=== PATIENT | male | born 1990 | race Caucasian/White ===

== ENCOUNTER 2018-03-02 19:37 | Emergency (ER) | payer SELFPAY ==
[2018-03-02] MEDS ORDERED: KETOROLAC 30 MG/ML INJ ONE (20:48)
--- NOTE | 2018-03-02 20:53 | EDPHYS ---
Physician Documentation [facility] Name: Jose Hankins Jr Age: 28 yrs Sex: Male : 1990 Arrival Date: 03/02/2018 Time: 19:44 Bed 23 Private MD: ED Physician Satish Brambila HPI: 03/02 20:34 This 28 yrs old Male presents to ER via Ambulatory with complaints of Wrist snw Injury. 20:34 The patient or guardian reports decreased range of motion, injury, pain. The complaints snw affect the left wrist diffusely. Context: The problem was sustained outdoors, resulted from a fall, on an outstretched hand. Onset: The symptoms/episode began/occurred suddenly, just prior to arrival. Associated signs and symptoms: Pertinent positives: of the left wrist. Compartment Syndrome negative for numbness. The patient has not experienced similar symptoms in the past. It is unknown whether or not the patient has recently seen a physician. Historical: - Allergies: 19:54 No Known Allergies; lp1 - Home Meds: 19:54 None [Active]; lp1 - PMHx: 19:54 None; lp1 - PSHx: 19:54 clavicle surgery; lp1 - Immunization history:: Adult Immunizations up to date. - Social history:: Smoking status: Patient uses tobacco products, smokes one-half pack cigarettes per day. - Ebola Screening: : No symptoms or risks identified at this time. ROS: 20:34 Constitutional: Negative for fever, chills, and weight loss, Eyes: Negative for injury, snw pain, redness, and discharge, ENT: Negative for injury, pain, and discharge, Neck: Negative for injury, pain, and swelling, Cardiovascular: Negative for chest pain, palpitations, and edema, Respiratory: Negative for shortness of breath, cough, wheezing, and pleuritic chest pain, Abdomen/GI: Negative for abdominal pain, nausea, vomiting, diarrhea, and constipation, Back: Negative for injury and pain, : Negative for injury, bleeding, discharge, and swelling, Skin: Negative for injury, rash, and discoloration, Neuro: Negative for headache, weakness, numbness, tingling, and seizure. 20:34 MS/extremity: Positive for injury or acute deformity, decreased range of motion, pain, of the left wrist. Exam: 20:33 Constitutional: This is a well developed, well nourished patient who is awake, alert, snw and in no acute distress. Head/Face: Normocephalic, atraumatic. Eyes: Pupils equal round and reactive to light, extra-ocular motions intact. Lids and lashes normal. Conjunctiva and sclera are non-icteric and not injected. Cornea within normal limits. Periorbital areas with no swelling, redness, or edema. ENT: Nares patent. No nasal discharge, no septal abnormalities noted. Tympanic membranes are normal and external auditory canals are clear. Oropharynx with no redness, swelling, or masses, exudates, or evidence of obstruction, uvula midline. Mucous membranes moist. Neck: Trachea midline, no thyromegaly or masses palpated, and no cervical lymphadenopathy. Supple, full range of motion without nuchal rigidity, or vertebral point tenderness. No Meningismus. Chest/axilla: Normal chest wall appearance and motion. Nontender with no deformity. No lesions are appreciated. Cardiovascular: Regular rate and rhythm with a normal S1 and S2. No gallops, murmurs, or rubs. Normal PMI, no JVD. No pulse deficits. Respiratory: Lungs have equal breath sounds bilaterally, clear to auscultation and percussion. No rales, rhonchi or wheezes noted. No increased work of breathing, no retractions or nasal flaring. Abdomen/GI: Soft, non-tender, with normal bowel sounds. No distension or tympany. No guarding or rebound. No evidence of tenderness throughout. Back: No spinal tenderness. No costovertebral tenderness. Full range of motion. Skin: Warm, dry with normal turgor. Normal color with no rashes, no lesions, and no evidence of cellulitis. Neuro: Awake and alert, GCS 15, oriented to person, place, time, and situation. Cranial nerves II-XII grossly intact. Motor strength 5/5 in all extremities. Sensory grossly intact. Cerebellar exam normal. Normal gait. Psych: Awake, alert, with orientation to person, place and time. Behavior, mood, and affect are within normal limits. 20:33 Musculoskeletal/extremity: Extremities: grossly normal except: noted in the left wrist: decreased ROM, swelling, tenderness, Circulation is intact in all extremities. Sensation intact. Vital Signs: 19:53 BP 142 / 85; Pulse 80; Resp 16; Temp 99(TE); Pulse Ox 100% on R/A; Weight 81.65 kg; lp1 Height 5 ft. 7 in. (170.18 cm); Pain 10/10; 20:15 BP 150 / 83; Pulse 80; Resp 18; Pulse Ox 99% ; tl3 21:31 BP 145 / 82; Pulse 80; Resp 18; Pulse Ox 100% on R/A; tl3 19:53 Body Mass Index 28.19 (81.65 kg, 170.18 cm) lp1 MDM: 20:26 Patient medically screened. snw 20:55 Data reviewed: vital signs, nurses notes. Data interpreted: Pulse oximetry: on room air snw is 100 %. Interpretation: normal. Counseling: I had a detailed discussion with the patient and/or guardian regarding: the historical points, exam findings, and any diagnostic results supporting the discharge/admit diagnosis, the presence of at least one elevated blood pressure reading (>120/80) during this emergency department visit, radiology results, the need for outpatient follow up, to return to the emergency department if symptoms worsen or persist or if there are any questions or concerns that arise at home. Special discussion: I have referred the patient to see his PCP for further evaluation of high blood pressure. Based on the history and exam findings, there is no indication for further emergent testing or inpatient evaluation. I discussed with the patient/guardian the need to see the hand specialist for further evaluation of the symptoms. I discussed with the patient/guardian the need to see the orthopedic surgeon for further evaluation of the symptoms. I discussed with the patient/guardian the need to see the primary care provider for further evaluation of the symptoms. 03/02 21:02 Order name: UDS tl3 03/02 21:02 Order name: Urine Drug Screen; Complete Time: 21:26 EDMS 03/02 19:55 Order name: XRAY Forearm LEFT; Complete Time: 21:02 lp1 03/02 19:55 Order name: XRAY Wrist LEFT 3 view; Complete Time: 21:02 lp1 03/02 20:45 Order name: Thumb Spica Splint; Complete Time: 21:01 snw Administered Medications: 20:30 Drug: TORadol 60 mg Route: IM; Site: left gluteus; tl3 21:02 Follow up: Response: Pain is decreased tl3 Disposition: 03/03 07:42 Co-signature as Attending Physician, Satish Brambila MD I agree with the assessment and tyrell plan of care. Disposition: 03/02/18 20:53 Discharged to Home. Impression: Fall (on) (from) unspecified stairs and steps, Fracture of middle third of navicular [scaphoid] bone of wrist. - Condition is Stable. - Discharge Instructions: Cast or Splint Care, Adult, Scaphoid Fracture, RICE for Routine Care of Injuries. - Prescriptions for Diclofenac Sodium 75 mg Oral Tablet Sustained Release - take 1 tablet by ORAL route 2 times per day; 30 tablet. orphenadrine citrate 100 mg Oral Tablet Sustained Release - take 1 tablet by ORAL route 2 times per day As needed; 20 tablet. - Medication Reconciliation Form, Thank You Letter, Antibiotic Education, Prescription Opioid Use form. - Follow up: Buzz Monahan MD; When: 1 - 2 days; Reason: Recheck today's complaints, Continuance of care, Re-evaluation by your physician. Signatures: Dispatcher [employer] EDTX Satish Brambila MD MD cha Therrien, Shelly, APPLICATION PERFORMANCE ENGINEER-C APPLICATION PERFORMANCE ENGINEER-Csnw Yazmin Bunch RN RN lp1 Kerline Noriega, SARTHAK RN tl3 Corrections: (The following items were deleted from the chart) 03/02 20:45 20:33 Splint - Sugar Tong - Forearm ordered. snw snw 21:53 20:53 03/02/2018 20:53 Discharged to Home. Impression: Fall (on) (from) unspecified tl3 stairs and steps; Fracture of middle third of navicular [scaphoid] bone of wrist. Condition is Stable. Forms are Medication Reconciliation Form, Thank You Letter, Antibiotic Education, Prescription Opioid Use. Follow up: Buzz Monahan; When: 1 - 2 days; Reason: Recheck today's complaints, Continuance of care, Re-evaluation by your physician. snw
--- NOTE | 2018-03-02 20:53 | ER ---
Nurse's Notes [facility] Name: Jose Hankins Jr Age: 28 yrs Sex: Male : 1990 Arrival Date: 03/02/2018 Time: 19:44 Bed 23 Private MD: Diagnosis: Fall (on) (from) unspecified stairs and steps;Fracture of middle third of navicular [scaphoid] bone of wrist Presentation: 03/02 19:52 Presenting complaint: Patient states: Fell of back of a truck around 1400, pain and lp1 limited ROM to left wrist, pain to left forearm and wrist. Transition of care: patient was not received from another setting of care. Onset of symptoms was March 02, 2018 at 14:00. Risk Assessment: Do you want to hurt yourself or someone else? Patient reports no desire to harm self or others. Initial Sepsis Screen: Does the patient meet any 2 criteria? No. Patient's initial sepsis screen is negative. Does the patient have a suspected source of infection? No. Patient's initial sepsis screen is negative. Care prior to arrival: None. 19:52 Method Of Arrival: Ambulatory lp1 19:52 Acuity: GUSTAVO 4 lp1 Triage Assessment: 19:54 General: Appears uncomfortable. Musculoskeletal: Range of motion: limited in left wrist.lp1 Historical: - Allergies: 19:54 No Known Allergies; lp1 - Home Meds: 19:54 None [Active]; lp1 - PMHx: 19:54 None; lp1 - PSHx: 19:54 clavicle surgery; lp1 - Immunization history:: Adult Immunizations up to date. - Social history:: Smoking status: Patient uses tobacco products, smokes one-half pack cigarettes per day. - Ebola Screening: : No symptoms or risks identified at this time. Screenin:15 Abuse screen: Denies threats or abuse. Nutritional screening: No deficits noted. tl3 Tuberculosis screening: No symptoms or risk factors identified. Fall Risk None identified. Assessment: 20:15 General: Appears uncomfortable, slender, well groomed, well developed, well nourished, tl3 Behavior is calm, cooperative, appropriate for age. Pain: Complains of pain in left wrist. Neuro: Level of Consciousness is awake, alert, Oriented to person, place, time, situation, Appropriate for age. Cardiovascular: Capillary refill < 3 seconds in left fingers Patient's skin is warm and dry. Respiratory: Airway is patent Respiratory effort is even, unlabored, Respiratory pattern is regular, symmetrical. GI: No signs and/or symptoms were reported involving the gastrointestinal system. : No signs and/or symptoms were reported regarding the genitourinary system. EENT: No signs and/or symptoms were reported regarding the EENT system. Derm: No signs and/or symptoms reported regarding the dermatologic system. Musculoskeletal: No signs and/or symptoms reported regarding the musculoskeletal system. Injury Description: fell back onto hand and bent his wrist back, good pulse, able to move fingers freely. 21:31 Reassessment: Patient appears in no apparent distress at this time. No changes from tl3 previously documented assessment. Patient and/or family updated on plan of care and expected duration. Pain level reassessed. Patient is alert, oriented x 3, equal unlabored respirations, skin warm/dry/pink. Vital Signs: 19:53 BP 142 / 85; Pulse 80; Resp 16; Temp 99(TE); Pulse Ox 100% on R/A; Weight 81.65 kg; lp1 Height 5 ft. 7 in. (170.18 cm); Pain 10/10; 20:15 BP 150 / 83; Pulse 80; Resp 18; Pulse Ox 99% ; tl3 21:31 BP 145 / 82; Pulse 80; Resp 18; Pulse Ox 100% on R/A; tl3 19:53 Body Mass Index 28.19 (81.65 kg, 170.18 cm) lp1 ED Course: 19:44 Patient arrived in ED. ds1 19:44 [facility] snw 19:44 Satish Brambila MD is Attending Physician. snw 19:53 Triage completed. lp1 19:53 Arm band placed on right wrist. lp1 20:15 Patient has correct armband on for positive identification. Bed in low position. Pulse tl3 ox on. NIBP on. 20:15 No provider procedures requiring assistance completed. Patient did not have IV access tl3 during this emergency room visit. 20:33 Kerline Noriega, SARTHAK is Primary Nurse. tl3 20:47 XRAY Forearm LEFT In Process Unspecified. EDMS 20:47 XRAY Wrist LEFT 3 view In Process Unspecified. EDMS 20:52 Buzz Monahan MD is Referral Physician. snw 21:11 Orthoglass splint: Thumb spica splint applied on left forearm. Sling applied to left tl3 arm. Administered Medications: 20:30 Drug: TORadol 60 mg Route: IM; Site: left gluteus; tl3 21:02 Follow up: Response: Pain is decreased tl3 Outcome: 20:53 Discharge ordered by . snw 21:31 Discharged to home ambulatory. tl3 21:31 Condition: stable 21:31 Discharge instructions given to patient, Instructed on discharge instructions, follow up and referral plans. medication usage, Demonstrated understanding of instructions, follow-up care, medications, Prescriptions given X 2. 21:53 Patient left the ED. tl3 Signatures: Dispatcher [employer] EDNC Alyssa Daley, TRAIN CONDUCTOR-C TRAIN CONDUCTOR-Oksana Barcenas ds1 Yazmin Bunch, RN RN lp1 Kerline Noriega RN RN tl3
--- NOTE | 2018-03-02 21:01 | RAD REPORT ---
EXAM DESCRIPTION: RAD - Wrist Left 3 View - 03/02/2018 8:46 pm CLINICAL HISTORY: Arm pain, wrist pain COMPARISON: None. FINDINGS: No gross fracture deformity seen. However, scaphoid bone is not optimally visualized on th benjamin views. There is no dislocation or periosteal reaction noted. No foreign body or other soft tissue abnormality. IMPRESSION: No acute fracture confirmed. Scaphoid bone is not optimally visualized. Follow-up imagin g can be performed if there is localized in at the scaphoid bone.
--- NOTE | 2018-03-02 21:02 | RAD REPORT ---
EXAM DESCRIPTION: RAD - Forearm Left - 03/02/2018 8:46 pm CLINICAL HISTORY: Fall, arm pain COMPARISON: None. FINDINGS: No fracture is identified. There is no dislocation or periosteal reaction noted. No foreign body or other soft tissue abnormality. IMPRESSION: Negative left forearm examination.
[2018-03-02 21:25] LABS: Barbiturates NEGATIVE (NEGATIVE); Benzodiazepines NEGATIVE (NEGATIVE); Cocaine NEGATIVE (NEGATIVE); METHAMPHETAM NEGATIVE (NEGATIVE); Methadone NEGATIVE (NEGATIVE); Opiates NEGATIVE (NEGATIVE); Phencyclidine NEGATIVE (NEGATIVE); THC Cannibis NEGATIVE (NEGATIVE)
== END 2018-03-02 21:53 | disposition home or self-care (01) ==
LOC: ER 19:37
DX: S62.025A Nondisplaced fracture of middle third of navicular [scaphoid] bone of left wrist, initial encounter for closed fracture (principal); W18.30XA Fall on same level, unspecified, initial encounter; Y93.9 Activity, unspecified; Y92.89 Other specified places as the place of occurrence of the external cause; F17.210 Nicotine dependence, cigarettes, uncomplicated
CPT/HCPCS: 80307; 96372; 99284